=== PATIENT | male | born 1940 | race Caucasian/White ===

== ENCOUNTER → 2019-07-13 12:53 | Outpatient (CLI) | payer MEDICARE, OTHER, SELFPAY ==
--- NOTE | 2019-07-13 13:00 | DI.MRI.S_ITS ---
PROCEDURE: MR LUMBAR SPINE WO CON INDICATIONS: Status post lumbar fusion with right lower extremity symptom TECHNIQUE: Noncontrast sagittal T1 spin echo and T2 fast echo, sagittal STIR, axial T1 and T2 fast spin echo through the lumbar spine. In cases with scoliosis, additional coronal T2 fast spin echo may be performed. COMPARISON: Laminectomy at [facility], RG, XR L-SPINE 2-3V, 11/11/2017, 10:23. [facility], CR, XR LUMBAR SPINE MIN 4V, 07/13/2019, 13:54. FINDINGS: Image quality: Susceptibility artifacts are noted in lower lumbar spine from prior lumbar spine fusion from L3-L5 levels. Alignment and Curvature: There is normal bony alignment. No spondylolisthesis is seen. Bone Marrow: Patient is status post laminectomy and transpedicular fusion at L3-4 level. Left transpedicular fusion screws seen at L4-5 level. Intervertebral spacer placement at L4-5 and L3-4 levels are seen. Laminectomy at L4-5 level is also noted. Marrow is of normal overall signal. No acute vertebral body compression fractures. Spinal Cord: Conus medullaris terminates at the L1 level. Visualized cord demonstrates normal signal and size. Paraspinous Soft Tissues: No paravertebral masses. Asymmetric atrophy of the right paraspinous muscles in lumbar spine is seen. L1-L2: Mild broad-based disc bulge and bilateral facet arthrosis is seen with no significant central canal stenosis or neuroforaminal narrowing. L2-L3: Normal appearance. L3-L4: Susceptibility artifacts are noted in this area. There is bilateral facet arthrosis. No significant central canal stenosis or neuroforaminal narrowing is seen. L4-L5: Post surgical changes are noted. Bilateral facet arthrosis and suggestion of dorsal disc osteophyte complex formation is seen with mild right-sided neuroforaminal narrowing. L5-S1: Broad-based disc bulge and bilateral facet arthrosis is seen with mild central canal stenosis and mild bilateral neuroforaminal narrowing. No gross nerve root compression is seen. IMPRESSION: 1. Patient is status post laminectomy and posterior fusion at L3-4 and L4-5 levels with post surgical changes. 2. No gross marrow edema. No acute compression fracture or spondylolisthesis. 3. Mild broad-based disc bulge and bilateral facet arthrosis at L1-2 and L5-S1 levels. Mild central canal stenosis and bilateral neural foramina narrowing is seen at L5-S1 level. 4. No significant central canal stenosis is seen at L3-4 and L4-5 levels. Bilateral facet arthrosis is seen at these levels. Dorsal disc osteophyte complex formation is seen at L4-5 level. Mild right-sided neuroforaminal narrowing is seen at L4-5 level. 5. Asymmetric atrophy of the right paraspinous muscle. Dictated by: Bartolo Castaneda M.D. on 07/13/2019 at 15:00 Approved by: Bartolo Castaneda M.D. on 07/13/2019 at 15:21
--- NOTE | 2019-07-13 13:00 | DI.RAD.S_ITS ---
PROCEDURE: XR LUMBAR SPINE MIN 4V INDICATIONS: Status post lumbar fusion with right lower extremity symptom TECHNIQUE: 5 views of the lumbar spine were acquired. COMPARISON: [facility], [place], XR L-SPINE 2-3V, 11/11/2017, 10:23. FINDINGS: Bones: There are 5 [id number] lumbar vertebral bodies. Posterior fixation hardware is present at L3-4. Patient is status post L4-5 discectomy. Hardware is in grossly unchanged anatomic alignment when compared with the plain film dated 11/11/17. No hardware fracture. Soft tissues: Overlying bowel gas pattern is normal. No suspicious soft tissue calcifications. Oblique images: Where visualized, there are no pars interarticularis defects. IMPRESSION: 1. Stable postoperative changes. 2. No spondylolysis or spondylolisthesis where visualized. Dictated by: Quita Emmanuel M.D. on 07/13/2019 at 16:55 Approved by: Quita Emmanuel M.D. on 07/13/2019 at 16:56
== END ==
PROVIDERS: Family Provider Family Medicine; PCP Family Medicine; Visit Provider Physical Medicine & Rehabilitation
DX: M96.1 Postlaminectomy syndrome, not elsewhere classified (principal); Z98.1 Arthrodesis status; M53.3 Sacrococcygeal disorders, not elsewhere classified; G14 Postpolio syndrome; R26.81 Unsteadiness on feet
CPT/HCPCS: 72110; 72148; 99215

== ENCOUNTER 2019-09-27 12:23 | Outpatient (CLI) | payer MEDICARE, OTHER, SELFPAY ==
[2019-09-27] VITALS (7 sets, daily range): BP systolic 133–159; BP diastolic 60–72; PULSE 56–72; RESP 16–18; O2SAT 96–99
--- NOTE | 2019-09-27 12:24 | DI.RAD.S_ITS ---
PROCEDURE: PAIN L/SI FACET INJ/BLK 1STL INDICATIONS: SPONDYLOSIS FINDINGS: Fluoroscopic spot filming was performed to verify placement of spinal needles at the L2-L3, L5-S1 level(s), as labeled on the films. Appropriate location(s) of the needle tip(s) was confirmed by injection of iodinated contrast. Dictated by: Antione Avendano M.D. on 09/27/2019 at 15:21 Approved by: Antione Avendano M.D. on 09/27/2019 at 15:21
[2019-09-27] MEDS: MIDAZOLAM 5 MG/5 ML VIAL IV (14:18)
[2019-09-27] MEDS: IOPAMIDOL 15 ML VIAL 3 ML INJ (14:28)
[2019-09-27] MEDS: BUPIVACAINE 0.5% (PF) VIAL 2 ML INJ (14:28)
[2019-09-27] MEDS: BETAMETHASONE 30 MG/5 ML MDV 12 MG INJ (14:28)
[2019-09-27] MEDS: LIDOCAINE 1% 20 ML 10 ML INJ (14:28)
--- NOTE | 2019-09-27 14:31 | PC.NURSE ---
ASSISTING PT OFF TABLE AND TRANSPORTING TO POST PROC AREA IN STABLE CONDITION.
--- NOTE | 2019-09-27 14:36 | P.PCN_ITS ---
Procedures Date/Time Date of procedure: 09/27/19 Time of procedure: 14:37 General Procedure description: PREOP DIAGNOSIS 1. FACET ARTHROPATHY, 2. AXIAL LBP, 3. MULTILEVEL DDD, POST OP DIAGNOSIS 1. FACET ARTHROPATHY, 2. AXIAL LBP, 3. MULTILEVEL DDD, PROCEDURES 1. FLUORSCOPICALLY GUIDED CONTRAST CONTROLLED FACET JOINT INJECTIONS RIGHT L2/3, L5/S1 SURGEON: Jude Tao, DO INDICATIONS Temo is referred by for treatment of Axial LBP FINDINGS Multilevel Facet Arthropathy with Clinically significant axial LBP DESCRIPTION OF PROCEDURE Fluoroscopically guided, contrast-controlled right L2/3, L5/S1 facet joint inj ections. Following review of allergy and review of potential side effects and complications, including, but not necessarily limited to, infection, allergic reaction, local tissue breakdown, stroke, temporary or permanent nerve injury, paralysis, and possible , the patient indicated that the patient understood and agreed to proceed. An informed consent document was signed by the patient, witnessed by a nurse, and placed in the patient's chart. Additionally, other treatment options including medications, modalities, and physical therapy were reviewed with the patient. After review of previous anaesthesic history and IV conscious sedation the patient was deemed safe to proceed with todays procedure with IV conscious sedation as ASA class II designation. Safety time-out was performed to confirm patient ID, procedure to be performed and site of procedure. IV sedation was accomplished with a combination of 2mg of Versed was administered by the RN after DO order, titrated to patient comfort during the course of the procedure while the patient remained responsive to all verbal commands. In the prone position, following sterile prep and drape of the lumbar region, the posterior aspect of the right L2/3, L5/S1 facet joints were identified fluoroscopically. The skin was anesthetized via a 25-gauge 1.5-inch needle with 1% lidocaine solution into the corresponding facet joints. At this point, a 22- gauge 3.5-inch spinal needle was atraumatically introduced and advanced under fluoroscopic guidance into the corresponding facet joints. Following negative aspiration, injections of approximately 0.2-cc of Isovue 200 confirmed interarticular placement without vascular uptake. Radiological data, including multiple fluoroscopic views of the lumbosacral spine, reveal a spinal needle at the right L2/3, L5/S1 facet joints. Subsequent views show flow of contrast material both superiorly and inferiorly within the joint space without vascular or intrathecal uptake. At this point, a total of 0.5cc including a mixture of 0.25cc Marcaine and 0.25cc betamethasone was injected without complication into each of the corresponding facet joints. The procedure tolerated the procedure well without signs or symptoms of complications prior to transfer to the recovery area continued monitoring without incident. The patient was then transferred to the recovery area where they were observed for an appropriate period of time after the injection. The patient reported a VAS score of 7 prior to the procedure and a post-procedure VAS of 0. Total Fluoroscopy Time: 12.7 seconds Total Conscious Sedation Time: 24min POST OP INSTRUCTIONS The patient was provided a Pain Log to continue to record their response to the target-specific procedure prior to follow-up visit with their referring physician. Additionally, specific post-injection care instructions and a contact number to our office were provided if concerns arise regarding possible complications associated with the procedure are suspected. Jude Tao, Complications: none
== END 2019-09-27 14:55 | disposition home or self-care (01) ==
LOC: RAD 12:24
PROVIDERS: Family Provider Family Medicine; PCP Family Medicine; Visit Provider Physical Medicine & Rehabilitation
DX: M47.817 Spondylosis without myelopathy or radiculopathy, lumbosacral region (principal); M47.816 Spondylosis without myelopathy or radiculopathy, lumbar region; M54.5 Low back pain; M51.36 Other intervertebral disc degeneration, lumbar region; M51.37 Other intervertebral disc degeneration, lumbosacral region
CPT/HCPCS: 64493; 64494; 99152; J0702; J2250; J3010

== ENCOUNTER → 2020-06-23 10:15 | Outpatient (CLI) | payer MEDICARE, OTHER, SELFPAY ==
[2020-06-24 17:35] LABS: COVID19 Sendout Not Detected (Not Detect)
== END ==
PROVIDERS: Family Provider Family Medicine; PCP Family Medicine; Visit Provider Physician Assistant
DX: Z11.59 Encounter for screening for other viral diseases (principal)
CPT/HCPCS: 87635

== ENCOUNTER 2020-06-26 10:12 | Outpatient (CLI) | payer MEDICARE, OTHER, SELFPAY ==
[2020-06-26] VITALS (7 sets, daily range): BP systolic 159–177; BP diastolic 67–85; PULSE 54–61; RESP 15–16; TEMP 36.4; O2SAT 95–98
--- NOTE | 2020-06-26 10:15 | DI.RAD.S_ITS ---
PROCEDURE: PAIN L/SI FACET INJ/BLK 1STL INDICATIONS: SPONDYLOSIS COMPARISON: [facility], , PAIN L/SI FACET INJ/BLK 1STL, 09/27/2019, 14:20. FINDINGS: Fluoroscopic spot filming was performed to verify placement of spinal needles at the right L5-S1 and S1-S2 level(s), as labeled on the films. Appropriate location(s) of the needle tip(s) was confirmed by injection of iodinated contrast. IMPRESSION: Access needles at the right L5-S1 and S1-S2 levels. Dictated by: Sylvie Richardson MD, PhD on 06/26/2020 at 13:38 Approved by: Sylvie Richardson MD, PhD on 06/26/2020 at 13:39
[2020-06-26] MEDS: IOPAMIDOL 15 ML VIAL 3 ML INJ (10:59)
[2020-06-26] MEDS: BUPIVACAINE 0.5% (PF) VIAL 5 ML INJ (10:59)
--- NOTE | 2020-06-26 11:03 | P.PCN_ITS ---
Date/Time/Diagnoses Date of procedure: 06/26/20 Time of procedure: 11:03 Pre-procedure diagnosis: 1. FACET ARTHROPATHY Post-procedure diagnosis: same Procedure Notes Procedure: 1. Right L5 and S1 MB BLOCKS Indications: Temo is referred by Dr. Cabrales for treatment of Right Axial LBP. Physician: Jude Tao Total Fluoroscopy time (seconds): 8 Total sedation minutes: 8 Complications: none Procedure in detail & Post-procedure care: DESCRIPTION OF PROCEDURE Fluoroscopically guided, contrast-controlled right L5 and S1 medial branch blocks with 0.5cc of 0.5% Marcaine. Following review of allergy and review of potential side effects and complications, including, but not necessarily limited to, infection, allergic reaction, local tissue breakdown, nerve injury, paralysis, stroke and possible , the patient indicated that the patient understood and agreed to proceed. An informed consent document was signed by the patient, witnessed by a nurse, and placed in the patient's chart. After review of previous anaesthesic history and IV conscious sedation the patient was deemed safe to proceed with today?s procedure with IV conscious sedation as ASA class II designation. Safety time-out was performed to confirm patient ID, procedure to be performed and site of procedure. IV sedation was deemed unnecessary and thus not administered by the RN after DO order, titrated to patient comfort during the course of the procedure while the patient remained responsive to all verbal commands In the prone position, following sterile prep and drape of the lumbar region, the right L5 and S1 anatomical location of the medial branch of the dorsal ramus was identified fluoroscopically. Subsequently an anesthetic skin wheal using 1% lidocaine solution was initiated at each of the anatomical spots. Subsequently then a 22-gauge 3.5-inch spinal needle was atraumatically introduced and advanced under fluoroscopic guidance at each of the corresponding sites at the right L5 and S1 MB. After negative aspiration, 0.2cc of Isovue 200 was injected, confirming placement without vascular or intrathecal uptake. Subsequently then 0.5cc of 0.5% Marcaine solution was injected at each of the corresponding sites at the right L5 and S1 medial branch locations. The patient tolerated the procedure well without signs or symptoms of complications. The procedure tolerated the procedure well without signs or symptoms of complications prior to transfer to the recovery area continued monitoring without incident. Post-procedure, the patient was monitored initiating provocative activities to measure the amount of relief from block of the facetogenic pain. The patient reported a VAS of 7 prior to the procedure and a post-procedure VAS of 1. It has been a pleasure to assist in the diagnostic and therapeutic care of your patient. POST OP INSTRUCTIONS The patient was provided with a Pain Log to complete over the next several hours and subsequent days prior to the patient's follow up with the ordering physician. If the patient has sole leveler machine relief to the solution applied, then they may be a candidate for medial branch rhizotomy. The patient is aware, was provided, once again, with a Pain Log and will follow up with the referring physician for review and clinical correlation.
--- NOTE | 2020-06-26 11:50 | PC.NURSE ---
Patient is a&o able to make needs known is drowsy did take 10mg Valium and unsteady on feet. Patient was 2 PA to chair, usually will ambulate with cane. Green pain log was reviewed with post injection instructions and has no questions or concerns. Pt did not receive sedations during procedure and was back at baseline and able to SBA with transfer into w/c for d/c. This RN assist pt to his car with his . Has no further questions or concerns and denies any pain.
--- NOTE | 2020-06-26 16:07 | PC.NURSE ---
Tolerated procedure well. Sedation administered by [facility]. All other meds given by Dr Tao. Vitals stable during and immediately post procedure. Report given to [facility] for post procedure recovery.
== END 2020-06-26 11:20 | disposition home or self-care (01) ==
LOC: RAD 10:14
PROVIDERS: Family Provider Family Medicine; PCP Family Medicine; Referring Provider Family Medicine; Visit Provider Physical Medicine & Rehabilitation
DX: M47.817 Spondylosis without myelopathy or radiculopathy, lumbosacral region (principal); M54.5 Low back pain
CPT/HCPCS: 64493; 99152; J2250; J3010

== ENCOUNTER → 2020-08-27 09:51 | Outpatient (CLI) | payer MEDICARE, OTHER, SELFPAY ==
--- NOTE | 2020-08-27 09:54 | DI.RAD.S_ITS ---
PROCEDURE: XR LUMBAR SPINE MIN 4V INDICATIONS: CURRENT IMAGE PAIN TECHNIQUE: 5 views of the lumbar spine were acquired. COMPARISON: [facility], [place], XR L-SPINE 2-3V, 02/19/2017, 8:45. [facility], [place], XR L-SPINE 2-3V, 11/11/2017, 10:23. [facility], MR, MR LUMBAR SPINE WO CON, 07/13/2019, 13:35. [facility], CR, XR LUMBAR SPINE MIN 4V, 07/13/2019, 13:54. FINDINGS: Bones: 5 nonrib-bearing vertebrae are present. There is grade 1 retrolisthesis of L5 on S1, unchanged. No vertebral body compression fractures. No suspicious bony lesions. There is discectomy and posterior fusion at L 3-L4 and L4-L5. There is stable appearance of surgical hardware. Mild degenerative disease at T12-L1, L2-L3 and L3-L4. Prominent anterior osteophytes in the lower thoracic spine. Soft tissues: Overlying bowel gas pattern is normal. Vascular calcifications consistent with atherosclerosis. Oblique images: No pars defects. IMPRESSION: Stable degenerative and postsurgical changes in lumbar spine. Dictated by: Breezy Chin M.D. on 08/27/2020 at 11:47 Approved by: Breezy Chin M.D. on 08/27/2020 at 11:53
== END ==
PROVIDERS: Family Provider Family Medicine; PCP Family Medicine; Referring Provider Physical Medicine & Rehabilitation; Visit Provider Physical Medicine & Rehabilitation
DX: M48.07 Spinal stenosis, lumbosacral region (principal); M47.817 Spondylosis without myelopathy or radiculopathy, lumbosacral region; M43.16 Spondylolisthesis, lumbar region; M51.35 Other intervertebral disc degeneration, thoracolumbar region; M51.36 Other intervertebral disc degeneration, lumbar region; G14 Postpolio syndrome; R26.81 Unsteadiness on feet; Z98.1 Arthrodesis status
CPT/HCPCS: 72110; 99214

== ENCOUNTER 2020-09-13 10:40 | Outpatient (CLI) | payer MEDICARE, OTHER, SELFPAY ==
[2020-09-13] VITALS (9 sets, daily range): BP systolic 138–185; BP diastolic 68–85; PULSE 53–62; RESP 16–28; TEMP 36.9; O2SAT 95–98
--- NOTE | 2020-09-13 10:44 | DI.RAD.S_ITS ---
PROCEDURE: PAIN L/S MED/LAT N RFA INDICATIONS: SPONDYLOSIS COMPARISON: None. FINDINGS: Fluoroscopic spot filming was performed to verify placement of spinal needles at the right L5-S1 region for right L5 and right S1 nerve root medial branch block. level(s), as labeled on the films. Appropriate location(s) of the needle tip(s) was confirmed by injection of iodinated contrast. IMPRESSION: Successful needle tip localization on the right for 2 levels of medial branch block procedures for the L5 and S1 nerve roots. Dictated by: Jalen Andrade M.D. on 09/13/2020 at 13:51 Approved by: Jalen Andrade M.D. on 09/13/2020 at 13:54
[2020-09-13] MEDS: MIDAZOLAM 5 MG/5 ML VIAL IV (12:08)
[2020-09-13] MEDS: BUPIVACAINE 0.5% (PF) VIAL 5 ML INJ (12:15)
--- NOTE | 2020-09-13 12:33 | P.PCN_ITS ---
Date/Time/Diagnoses Date of procedure: 09/13/20 Time of procedure: 12:33 Pre-procedure diagnosis: 1. RECALCITRANT FACET ARTHROPATHY Post-procedure diagnosis: same Procedure Notes Procedure: 1. RIGHT L5 MEDIAL BRANCH RADIOFREQUENCY NEUROTOMY AND RIGHT S1 DORSAL RAMUS BRANCH RADIOFREQUENCY NEUROTOMY Indications: Temo is referred by Dr. Cabrales for treatment of facet arthropathy. Physician: Jude Tao Total Fluoroscopy time (seconds): 9 Total sedation minutes: 19 Complications: none Procedure in detail & Post-procedure care: DESCRIPTION OF PROCEDURE Right L5 medial branch radiofrequency neurotomy and right S1 dorsal ramus branch radiofrequency neurotomy under fluoroscopy with conscious sedation. The patient is well known to this clinic having undergone previous facet injections with good but temporary relief. The patient has experienced appropriate, concordant relief with previous facet and median branch blocks but the patient's pain has been recalcitrant to further conservative measures. Therefore, based upon the patient's relief and persistent symptoms, the patient is considered an appropriate candidate for facet rhizotomy. All of the patient's questions regarding the risks versus benefits of the procedure, including, but not limited to, bleeding, infection, temporary as well as lasting nerve injury, paralysis, stroke, and , as well treatment alternatives were answered to sa maldonado. After review of previous anaesthesic history and IV conscious sedation the patient was deemed safe to proceed with today?s procedure with IV conscious sedation as ASA class II designation. Safety time-out was performed to confirm patient ID, procedure to be performed and site of procedure. IV sedation was accomplished with a combination of 2mg of Versed was administered by the RN af ter DO order, titrated to patient comfort during the course of the procedure while the patient remained responsive to all verbal commands. After obtaining informed consent, denial of pertinent drug allergies, as well as being made aware of the potential risks of bleeding, infection, spinal cord trauma, paralysis, temporary and permanent nerve damage, seizure, stroke, and possible , the patient was brought to the fluoroscopy suite and positioned prone on the fluoroscopy table. The lumbar region was prepped with Betadine and covered with a fenestrated drape in the usual sterile fashion. Appropriate monitors applied including pulse oximeter, pulse, and blood pressure for regular monitoring throughout the procedure. After local infiltration using 1% lidocaine, under fluoroscopic guidance, a 10- cm RF insulated needle with a 10-mm active tip was positioned parallel to the junction of the right sacral ala and the superior articulating process where the S1 dorsal ramus resides. Needle placement was confirmed with sensory stimulation at 50 Hz, with motor stimulation of .5v on the right which produced local stimulation without radicular component. The stimulation was then increased to 2v with, once again, only local multifidus stimulation without radicular component. This was then followed by two discreet lesions performed at 80 degrees Celsius for 90 seconds each. The needle was then removed and the identical procedure was performed along the length of the right L5 medial branch with motor stimulation at .7v on the right. The patient tolerated the procedure well without signs or symptoms of complications prior to transfer to the recovery area continued monitoring without incident. The patient was then transferred to the recovery area where they were observed for an appropriate period of time after the injection. The patient was then transferred to the recovery area where they were observed for an appropriate period of time after the injection. The patient reported a VAS score of 8 prior to the procedure and a post- procedure VAS of 0. POST OP INSTRUCTIONS The patient was provided a Pain Log to continue to record the patient's response to the target-specific procedure prior to the patient's follow-up visit with the referring physician. Additionally, specific post-injection care instructions and a contact number to our office were provided if concerns arise regarding possible complications associated with the procedure are suspected.
== END 2020-09-13 12:51 | disposition home or self-care (01) ==
LOC: RAD 10:42
PROVIDERS: Family Provider Family Medicine; PCP Family Medicine; Referring Provider Physical Medicine & Rehabilitation; Visit Provider Physical Medicine & Rehabilitation
DX: M47.817 Spondylosis without myelopathy or radiculopathy, lumbosacral region (principal)
CPT/HCPCS: 64635; 99152; J2250; J3010

== ENCOUNTER 2021-04-25 10:30 | Outpatient (CLI) | payer MEDICARE, OTHER, SELFPAY ==
[2021-04-25] VITALS (9 sets, daily range): BP systolic 153–181; BP diastolic 62–81; PULSE 45–52; RESP 15–23; TEMP 36.1; O2SAT 95–100
--- NOTE | 2021-04-25 10:31 | DI.RAD.S_ITS ---
PROCEDURE: PAIN L/S TRANSFORAMINAL INJECT INDICATIONS: SPONDYLOSIS COMPARISON: None. FINDINGS: Fluoroscopic spot filming was performed to verify placement of spinal needles at the right L5-S1 neural foramen level(s), as labeled on the films. Appropriate location(s) of the needle tip(s) was confirmed by injection of iodinated contrast. IMPRESSION: Successful needle tip localization on the right at the L5-S1 neural foramen for transforaminal epidural steroid injection. Dictated by: Jalen Andrade M.D. on 04/25/2021 at 12:09 Approved by: Jalen Andrade M.D. on 04/25/2021 at 12:09
[2021-04-25] MEDS: MIDAZOLAM 5 MG/5 ML VIAL IV (11:38)
[2021-04-25] MEDS: BUPIVACAINE 0.25% (PF) VIAL 2 ML INJ (11:40)
[2021-04-25] MEDS: IOPAMIDOL 15 ML VIAL 3 ML INJ (11:40)
[2021-04-25] MEDS: DEXAMETHASONE 10 MG/ML VIAL 20 MG INJ (11:40)
[2021-04-25] MEDS: methylPREDNISolone acetate 80 MG/ML VIAL IM (11:41)
--- NOTE | 2021-04-25 11:51 | P.PCN_ITS ---
Date/Time/Diagnoses Date of procedure: 04/25/21 Time of procedure: 11:51 Pre-procedure diagnosis: FORAMINAL STENOSIS WITH LE SYMPTOMS Post-procedure diagnosis: same Procedure Notes Procedure: 1. FLUOROSCOPICALLY GUIDED CONTRAST CONTROLLED TRANSFORAMINAL EPIDURAL STEROID INJECTION - RIGHT L5/S1 TFESI Indications: Temo is referred by Dr. Cabrales for treatment of Foraminal Stenosis with Right LE Symptoms Physician: Jude Tao Total Fluoroscopy time (seconds): 12 Total sedation minutes: 8 Complications: none Procedure in detail & Post-procedure care: FINDINGS Foraminal Nerve Root Compression secondary to disc disease and facet hypertrophy DESCRIPTION OF PROCEDURE Following review of allergy and review of potential side effects and complications, including, but not necessarily limited to, infection, allergic reaction, local tissue breakdown, stroke, temporary or permanent nerve injury, paralysis, and possible , the patient indicated that the patient understood and agreed to proceed. An informed consent document was signed by the patient, witnessed by a nurse, and placed in the patient's chart. Additionally, other treatment options including medications, modalities, and physical therapy were reviewed with the patient. After review of previous anaesthesic history and IV conscious sedation the patient was deemed safe to proceed with today?s procedure with IV conscious sedation as ASA class II designation. Safety time-out was performed to confirm patient ID, procedure to be performed and site of procedure. IV sedation was accomplished with a combination of 2mg of Versed was administered by the RN after DO order, titrated to patient comfort during the course of the procedure while the patient remained responsive to all verbal commands In the prone position following sterile prep and drape of the lumbar region, the right L5/S1 posterior neuroforamen was identified fluoroscopically. The skin was anesthetized via a 25-gauge 1.5-inch needle with 1% lidocaine solution. At this point, a 25-gauge 3.5-inch spinal needle was atraumatically introduced and advanced under fluoroscopic guidance through the posterior right L5/S1 neuroforamen to approximately the anterior aspect of the canal. Depth was confirmed on lateral view. Following negative aspiration, injection of approximately 1.5cc of Isovue 200 under live fluoroscopy in the AP view confirmed excellent flow along the nerve root, into the epidural space without vascular or intrathecal uptake observed Radiological data, including multiple fluoroscopic views of the lumbosacral spine, reveal a spinal needle at the right L5/S1 posterior neuroforamen. Subsequent views show flow of contrast material flowing superiorly and inferiorly along the nerve root confirming epidural flow. Subsequently, a test dose of 1.5 cc of 1% lidocaine solution was administered and patient was observed for two minutes for signs or symptoms of complications, including abdominal pain, shortness of breath, bilateral upper or lower extremity weakness, nausea and vomiting, prior to steroid injection. At this point, a total of 3cc or 20mg of dexamethasone and 80mg Depo medrol was injected without incident. The procedure tolerated the procedure well without signs or symptoms of complications prior to transfer to the recovery area continued monitoring without incident. The patient was then transferred to the recovery area where they were observed for an appropriate time after the injection. The patient reported a VAS score of 7 prior to the procedure and a post- procedure VAS of 0. POST OP INSTRUCTIONS The patient was provided a Pain Log to continue to record their response to the target-specific procedure prior to follow-up visit with their referring physician. Additionally, specific post-injection care instructions and a contact number to our office were provided if concerns arise regarding possible complications associated with the procedure are suspected.
== END 2021-04-25 12:48 | disposition home or self-care (01) ==
PROVIDERS: Family Provider Family Medicine; PCP Family Medicine; Referring Provider Physical Medicine & Rehabilitation; Visit Provider Physical Medicine & Rehabilitation
DX: M48.07 Spinal stenosis, lumbosacral region (principal); M51.17 Intervertebral disc disorders with radiculopathy, lumbosacral region
CPT/HCPCS: 64483; J0702; J1040; J1100; J2250; J3010

== ENCOUNTER → 2023-12-15 09:04 | Outpatient (CLI) | payer MEDICARE, OTHER, SELFPAY ==
--- NOTE | 2023-12-16 02:39 | DI.NM.S_ITS ---
DATE OF SERVICE: 12/15/2023 PROCEDURE: Pharmacological perfusion study INDICATIONS: Shortness of breath with history of heart failure, diabetes mellitus, renal insufficiency, hypertension. RADIOPHARMACEUTICAL: 27.5 millicurie technetium-99m Myoview IV was injected at stress and 11.8 millicurie technetium-99m Myoview IV was injected at rest. CARDIAC STRESS: Patient underwent IV Lexiscan perfusion study under the supervision of an attending staff as per standard protocol. The patient remained hemodynamically stable. Baseline blood pressure 160/74. Baseline rhythm sinus with mild sinus bradycardia and atypical left bundle branch block. During stress no new convincing ischemic changes or significant arrhythmias seen. RAW DATA: The patient's weight is 187 pounds. There is significant subdiaphragmatic activity. Gut encroaching the inferior border of the heart. Liver is pretty high in the chest at the level of the heart. GATED STUDY: Resting LV ejection fraction 51% and stress LV ejection fraction 57% without any significant wall motion abnormalities. Resting end-diastolic volume 183 mL which is elevated. TID ratio 0.85, which is within normal limits. Lung/heart ratio 0.40, which is within normal limits. MYOCARDIAL PERFUSION SCAN: Please note that the patient does not have any stress prone images. Stress supine and resting supine images were compared to each other. There appears to be predominantly fixed, large size, moderate to severely decreased perfusion of inferior wall extending into the inferior apex as well as base to mid inferior septum, basal inferolateral wall, distal inferolateral wall. There is also a predominantly fixed defect small size, involving distal anterior wall and distal anteroseptum. There is some reversibility around basal inferolateral wall. CONCLUSION: This is an abnormal perfusion study with large size, moderate to severely decreased perfusion of inferior wall extending into the base to mid inferior septum, inferior apex, basal inferolateral wall, distal inferolateral wall as well as mildly decreased perfusion of distal anteroseptum and distal anterior wall with slight reversibility around basal inferolateral wall. On raw data there is significant gut shadow encroaching the entire inferior border of the heart. Liver elevated at the size of heart. There are no stress prone images, hence, difficult to distinguish tissue attenuation artifact versus true infarction. Stress left ventricular ejection fraction 57% and resting LV ejection fraction 51% without any significant wall motion abnormalities. There appears to be element of tissue attenuation artifact, however, underlying multivessel coronary artery disease cannot be ruled out. Correlate clinically and if there is suspicion for coronary artery disease is high, consider left heart catheterization. Jeremie Temo - MARYAM/renata/jyoti doc#: [id number]/job#: [id number] dd: 12/15/2023 16:38:00 dt: 12/16/2023 02:30:00 DICTATING MD/COPIES TO: Jessica Roblero MD; Teena Cabrales MD COPIES MNE: BIRD;
== END ==
LOC: NUCM 09:04
PROVIDERS: Family Provider Family Medicine; PCP Family Medicine; Referring Provider Family Medicine; Visit Provider Family Medicine
DX: I50.21 Acute systolic (congestive) heart failure (principal); R94.39 Abnormal result of other cardiovascular function study
CPT/HCPCS: 78452; 93017; A9502; J2785